=== PATIENT | male | born 1985 | race African-American/Black ===

== ENCOUNTER → 2016-12-06 | Outpatient (CLI) | payer BC, OTHER ==
[2016-12-06 15:59] LABS: ADD HIVPANEL? NO; HIV (1 AND 2) ANTIBODY NEGATIVE (NEGATIVE)
== END ==
LOC: OD 14:04
PROVIDERS: ATTEND Internal Medicine
DX: N34.1 Nonspecific urethritis (principal)
CPT/HCPCS: 36415; 86592; 86701; 87491; 87591

== ENCOUNTER 2018-02-10 21:12 | Emergency (ER) | payer BC, OTHER ==
--- NOTE | 2018-02-10 21:45 | RADIOLOGY REPORT (SQ) ---
EXAM DESCRIPTION: KNEE RIGHT 4 VIEWS COMPLETED DATE/TIME: 02/10/2018 9:33 pm REASON FOR STUDY: Pain s/p injury COMPARISON: None. NUMBER OF VIEWS: Four views. TECHNIQUE: AP, lateral, and both oblique radiographic images acquired of the right knee. LIMITATIONS: None. FINDINGS: MINERALIZATION: Normal. BONES: No acute fracture or dislocation. No worrisome bone lesions. JOINT: No effusion. SOFT TISSUES: No soft tissue swelling. No radio-opaque foreign body. OTHER: No other significant finding. IMPRESSION: NEGATIVE STUDY OF THE RIGHT KNEE. NO RADIOGRAPHIC EVIDENCE OF ACUTE INJURY. TECHNICAL DOCUMENTATION: JOB ID: [id number] [employer]- All Rights Reserved Reading location - IP/workstation name: [email or web address]
--- NOTE | 2018-02-10 23:52 | ER Document Report ---
ED General - General Chief Complaint: Knee Pain Stated Complaint: KNEE INJURY Time Seen by Provider: 02/10/18 23:42 Notes: Patient is a 32-year-old male who presents with complaint of knee pain. Pain is to the right knee. Patient says that he was jumping on trampoline and jumped into a foam pit and felt his knee pop. This happened approximately a week ago. Since then he has been having worsening pain and now it hurts to bear weight. He denies any old injuries to the knee. This is a new thing. He denies any injury to his ankle or hip. No weakness or numbness into the foot. No other complaints at this time. TRAVEL OUTSIDE OF THE [place] IN LAST 30 DAYS: No - Related Data Allergies/Adverse Reactions: ibuprofen Adverse Reaction (Verified 05/15/16 14:14) Past Medical History - Social History Smoking Status: Unknown if Ever Smoked Frequency of alcohol use: None Drug Abuse: None Family History: Reviewed & Not Pertinent Patient has suicidal ideation: No Patient has homicidal ideation: No Renal/ Medical History: Denies: Hx Peritoneal Dialysis - Immunizations Hx Diphtheria, Pertussis, Tetanus Vaccination: Yes Review of Systems - Review of Systems Notes: My Normal Review Basic REVIEW OF SYSTEMS: CONSTITUTIONAL : Denies fever, chills, or sweats. Denies recent illness. MUSCULOSKELETAL: Right knee pain SKIN: Denies rash or skin lesions. NEUROLOGICAL: Denies sensory or motor loss. ALL OTHER SYSTEMS REVIEWED AND NEGATIVE. Physical Exam - Vital signs Vitals: Temp Pulse Resp BP Pulse Ox 97.7 F 72 15 143/76 H 99 02/10/18 22:59 02/10/18 22:59 02/10/18 22:59 02/10/18 22:59 02/10/18 22:59 - Notes Notes: General Appearance: Well nourished, alert, cooperative, no acute distress, no obvious discomfort. Well-appearing. Vitals: reviewed, See vital signs table. Extremities: strength 5/5 in all extremities, good pulses in all extremities, patient is able lift the leg off the bed with the knee in full extension without any difficulty. Does have pain palpation mainly over the patella ligament. He also some pain over the medial lateral aspect of the knee. No significant swelling. Skin: warm, dry, appropriate color, no rash Neuro: speech clear, oriented x 3, normal affect, responds appropriately to questions. Distal sensation intact. Course - Re-evaluation Re-evalutation: 02/11/18 05:51 Patient is evidence of potential ligamentous injury to his knee. I will place him in the immobilizer and given crutches and have him follow-up with orthopedist. I encourage him to return to the ER if he has worsening pain, increasing swelling, fevers, feels unwell. Patient agrees with plan will be discharged home. Dictation of this chart was performed using voice recognition software; therefore, there may be some unintended grammatical errors. - Vital Signs Vital signs: Temp Pulse Resp BP Pulse Ox 97.9 F 69 14 131/72 H 97 02/11/18 01:19 02/11/18 01:19 02/11/18 01:19 02/11/18 01:19 02/11/18 01:19 Discharge - Discharge Clinical Impression: Strain of knee Condition: Good Disposition: HOME, SELF-CARE Additional Instructions: Please wear the knee immobilizer and use the crutches to not bear weight on your right knee. I suspect you have a ligamentous injury to your knee. Please follow up with the orthopedic surgeon, Dr. Sesay, for close reevaluation and further treatment of your knee. Please take Tylenol and Motrin for pain. Please take the Motrin with food. Forms: Special Work Note Referrals: YUDELKA SESAY MD [ACTIVE STAFF] - Follow up in 1 week
[2018-02-11 01:20] VITALS: BP 131/72
== END 2018-02-11 01:22 | disposition home or self-care (01) ==
LOC: ER 21:12
DX: M25.561 Pain in right knee (principal)
CPT/HCPCS: 99283; 73564; L1830

== ENCOUNTER 2018-07-13 09:24 | Emergency (ER) | payer OTHER ==
[2018-07-13 09:32] VITALS: BP 136/74
--- NOTE | 2018-07-13 11:13 | RADIOLOGY REPORT (SQ) ---
EXAM DESCRIPTION: SHOULDER LEFT 2 OR MORE VIEWS COMPLETED DATE/TIME: 07/13/2018 11:00 am REASON FOR STUDY: pain and decreased ROM COMPARISON: None. NUMBER OF VIEWS: Three views. TECHNIQUE: Internal rotation, external rotation, and Y view images acquired of the left shoulder. LIMITATIONS: None. FINDINGS: MINERALIZATION: Normal. BONES: No acute fracture or dislocation. No worrisome bone lesions. JOINTS: No dislocation. VISUALIZED LUNGS AND RIBS: No pneumothorax. No rib fracture. SOFT TISSUES: No radiopaque foreign body. OTHER: No other significant finding. IMPRESSION: NEGATIVE STUDY OF THE LEFT SHOULDER. NO RADIOGRAPHIC EVIDENCE OF ACUTE INJURY. TECHNICAL DOCUMENTATION: JOB ID: [id number] [email or web address]- All Rights Reserved Reading location - IP/workstation name: [email or web address]
--- NOTE | 2018-07-13 11:25 | ER Document Report ---
ED Extremity Problem, Upper - General Chief Complaint: left arm pain Stated Complaint: NUMBNESS LEFT ARM Time Seen by Provider: 07/13/18 10:20 Mode of Arrival: Ambulatory Information source: Patient Notes: 33-year-old male presents to ED for complaint of left arm pain since Saturday with limited range of motion. He denies any trauma or any known reason for having pain. He states she woke up with the pain and has had increasing decreased cramping with it. He states he is on Tylenol tramadol and Zanaflex and has been taking these with no relief. Patient is allergic to ibuprofen. He is alert and oriented respirations regular and unlabored speaking in full sentences. TRAVEL OUTSIDE OF THE [place] IN LAST 30 DAYS: No - HPI Patient complains to provider of: Pain, Left, Shoulder Onset: Other - Saturday Recent injury: No Quality of pain: Achy, Sharp Severity of pain: Moderate Pain Level: 4 Associated symptoms: Other - Left shoulder pain Exacerbated by: Movement, Exertion Relieved by: Nothing Similar symptoms previously: Yes Recently seen / treated by doctor: No - Related Data Allergies/Adverse Reactions: ibuprofen Adverse Reaction (Verified 05/15/16 14:14) Past Medical History - General Information source: Patient - Social History Smoking Status: Never Smoker Chew tobacco use (# tins/day): No Frequency of alcohol use: Occasional Drug Abuse: None Occupation: [employer] Family History: Reviewed & Not Pertinent Patient has suicidal ideation: No Patient has homicidal ideation: No - Past Medical History Cardiac Medical History: Reports: None Pulmonary Medical History: Reports: None EENT Medical History: Reports: None Neurological Medical History: Reports: Hx Migraine Endocrine Medical History: Reports: None Renal/ Medical History: Reports: None Malignancy Medical History: Reports None GI Medical History: Reports: Hx Ulcer Musculoskeletal Medical History: Reports Hx Musculoskeletal Deformity - Scoliosis Skin Medical History: Reports None Psychiatric Medical History: Reports: Hx Depression, Hx Post Traumatic Stress Disorder Past Surgical History: Reports: Hx Inguinal Hernia, Hx Oral Surgery - [place] teeth, Hx Umbilical Hernia - Immunizations Hx Diphtheria, Pertussis, Tetanus Vaccination: Yes Review of Systems - Review of Systems Notes: REVIEW OF SYSTEMS: CONSTITUTIONAL : Denies fever, chills, or sweats. Denies recent illness. EENT: Denies eye, ear, throat, or mouth pain or symptoms. Denies nasal or sinus congestion or discharge. Denies throat, tongue, or mouth swelling or difficulty swallowing. CARDIOVASCULAR: Denies chest pain. Denies palpitations or racing or irregular heart beat. Denies ankle edema. RESPIRATORY: Denies cough, cold, or chest congestion. Denies shortness of breath, difficulty breathing, or wheezing. GASTROINTESTINAL: Denies abdominal pain or distention. Denies nausea, vomiting , or diarrhea. Denies blood in vomitus, stools, or per rectum. Denies black, tarry stools. Denies constipation. GENITOURINARY: Denies difficulty urinating, painful urination, burning, frequency, blood in urine, or discharge. MUSCULOSKELETAL: Denies back or neck pain or stiffness. Pain and limited range of motion due to pain to the left shoulder since Saturday denies any falls injuries or any other reason he states he just woke up with the pain. He states he has been taking Tylenol tramadol and Zanaflex with no relief. SKIN: Denies rash, lesions or sores. HEMATOLOGIC : Denies easy bruising or bleeding. LYMPHATIC: Denies swollen, enlarged glands. NEUROLOGICAL: Denies confusion or altered mental status. Denies passing out or loss of consciousness. Denies dizziness or lightheadedness. Denies headache. Denies weakness or paralysis or loss of use of either side. Denies problems with gait or speech. Denies sensory loss, numbness, or tingling. Denies seizures. PSYCHIATRIC: Denies anxiety or stress. Denies depression, suicidal ideation, or homicidal ideation. ALL OTHER SYSTEMS REVIEWED AND NEGATIVE. Dictation was performed using [employer] voice recognition software PHYSICAL EXAMINATION: GENERAL: Well-appearing, well-nourished and in no acute distress. HEAD: Atraumatic, normocephalic. EYES: Pupils equal round and reactive to light, extraocular movements intact, sclera anicteric, conjunctiva are normal. ENT: Nares patent, oropharynx clear without exudates. Moist mucous membranes. NECK: Normal range of motion, supple without lymphadenopathy LUNGS: Breath sounds clear to auscultation bilaterally and equal. No wheezes rales or rhonchi. HEART: Regular rate and rhythm without murmurs ABDOMEN: Soft, nontender, nondistended abdomen. No guarding, no rebound. No masses appreciated. Musculoskeletal: Tenderness to the anterior and posterior shoulder on the left. He has decreased range of motion due to the pain. NEUROLOGICAL: Cranial nerves grossly intact. Normal speech, normal gait. Normal sensory, motor exams PSYCH: Normal mood, normal affect. SKIN: Warm, Dry, normal turgor, no rashes or lesions noted. Physical Exam - Vital signs Vitals: Temp Pulse Resp BP Pulse Ox 98.0 F 83 16 136/74 H 95 07/13/18 09:31 07/13/18 09:31 07/13/18 09:31 07/13/18 09:31 07/13/18 09:31 Course - Re-evaluation Re-evalutation: 07/13/18 22:23 X-rays with patient and patient was discharged home to continue with his Tylenol tramadol and Zanaflex and follow-up with orthopedics. - Vital Signs Vital signs: Temp Pulse Resp BP Pulse Ox 98.0 F 83 16 136/74 H 95 07/13/18 09:31 07/13/18 09:31 07/13/18 09:31 07/13/18 09:31 07/13/18 09:31 - Diagnostic Test Radiology reviewed: Image reviewed, Reports reviewed Discharge - Discharge Clinical Impression: Pain of left shoulder joint on movement Condition: Stable Disposition: HOME, SELF-CARE Additional Instructions: Shoulder Injury You have injured your shoulder. This usually results from stretching or tearing of the tendons during trauma. Time and protection are required in order to heal properly. Many injuries are quite disabling, and should be taken seriously. Initial treatment includes cold packs and a sling to rest the shoulder. The physician has assessed the seriousness of your injury, and has outlined a treatment plan. Understand that this treatment may change, depending on how you progress. If a re-examination was recommended, it is important that you follow up as instructed. Some shoulder injuries (such as partial tear of the rotator cuff) are only suspected after you've failed to improve. Call us if there's severe pain, numbness, or loss of function. Exercise Program for the Shoulder Since the shoulder moves in so many directions, the joint attachment is weak. Muscles provide most of the stability to the shoulder. You must exercise your shoulder to prevent painful instability or stiffening. PASSIVE - These may be begun within a few days of the injury. While standing, lean forward, allowing the arm to hang down towards the floor. Move the arm in small circles while slowly twisting your chest towards and away from the hanging arm. Do this for one minute. ACTIVE - These may be performed when the doctor gives permission. Begin with the arms at the sides. Raise the arms forward (shoulder's width apart) until they reach shoulder level. Then slowly swing both arms back until they are aiming straight out away from each other. Then bring them forward again, and finally, lower them to your sides. Repeat 20 to 30 times. As you improve, put weights in your hands for the exercise. Start with one pound, and work up to 10 pounds. Never use more than is comfortable. Athletes may work up to 30 pounds. Continue your tramadol Zanaflex and Tylenol and follow-up with your primary doctor. I have given you the name and number of orthopedics to follow-up for your shoulder pain and decreased range of motion. Your x-ray is negative and I have given you a written report of the x-ray to take with you to your primary doctor and orthopedics. FOLLOW-UP CARE: If you have been referred to a physician for follow-up care, call the physician s office for an appointment as you were instructed or within the next two days. If you experience worsening or a significant change in your symptoms, notify the physician immediately or return to the Emergency Department at any time for re-evaluation. Forms: Elevated Blood Pressure, Return to Work Referrals: [facility] [Primary Care Provider] - Follow up as needed [facility] [Provider Group] - Follow up as needed
== END 2018-07-13 11:40 | disposition home or self-care (01) ==
LOC: ER 09:24
DX: M25.512 Pain in left shoulder (principal); R20.0 Anesthesia of skin; M79.602 Pain in left arm
CPT/HCPCS: 99283

== ENCOUNTER 2018-09-14 19:07 | Emergency (ER) | payer OTHER ==
[2018-09-14 19:29] VITALS: BP 119/76
--- NOTE | 2018-09-14 20:12 | RADIOLOGY REPORT (SQ) ---
EXAM DESCRIPTION: XR KNEE 4 OR MORE VIEWS COMPLETED DATE/TME: 09/14/2018 00:00 CLINICAL HISTORY: 33 years, Male, Playing basketball and injured R knee. Painful. Findings: Bony alignment is anatomic. No fracture or dislocation. No significant suprapatellar joint effusion. Soft tissues are unremarkable. IMPRESSION: No fracture.
--- NOTE | 2018-09-14 20:46 | ER Document Report ---
HPI - HPI Time Seen by Provider: 09/14/18 20:03 Pain Level: 4 Notes: Patient presents with chief complaint of right knee injury that occurred approximately 1 hour prior to arrival. Patient reports he was playing basketball when he felt his knee give out from under her knees him. He denies any direct trauma to the area. Reports history of previous knee injury that he did not follow-up with. Past Medical History - General Information source: Patient - Social History Smoking Status: Never Smoker Lives with: Spouse/Significant other Family History: Reviewed & Not Pertinent Neurological Medical History: Reports: Hx Migraine Renal/ Medical History: Denies: Hx Peritoneal Dialysis GI Medical History: Reports: Hx Ulcer Musculoskeletal Medical History: Reports Hx Musculoskeletal Deformity - Scoliosis Psychiatric Medical History: Reports: Hx Depression, Hx Post Traumatic Stress Disorder Past Surgical History: Reports: Hx Inguinal Hernia, Hx Oral Surgery - [place] teeth, Hx Umbilical Hernia - Immunizations Hx Diphtheria, Pertussis, Tetanus Vaccination: Yes Vertical Provider Document - CONSTITUTIONAL Notes: PHYSICAL EXAMINATION: GENERAL: Well-appearing, well-nourished and in no acute distress. HEAD: Atraumatic, normocephalic. EYES: Pupils equal round extraocular movements intact, conjunctiva are normal. ENT: Nares patent NECK: Normal range of motion LUNGS: No respiratory distress Musculoskeletal: Normal range of motion tenderness to palpation to medial and lateral, right knee, normal motor, strength and sensation. Normal dorsalis pedis pulse. NEUROLOGICAL: Normal speech, normal gait. PSYCH: Normal mood, normal affect. SKIN: Warm, Dry, normal turgor, no rashes or lesions noted. - INFECTION CONTROL TRAVEL OUTSIDE OF THE [place] IN LAST 30 DAYS: No Course - Re-evaluation Re-evalutation: 09/14/18 21:11 X-rays negative for any acute fracture or dislocation. Patient already has a knee immobilizer from his previous injury. Patient would like to wear the knee above the lesser that he already has. Encourage patient to follow-up with [facility] if not improving. Discussed possibility of internal knee injury. Patient verb alizes understanding and agreement with plan. - Vital Signs Vital signs: Temp Pulse Resp BP Pulse Ox 98.2 F 103 H 16 119/76 95 09/14/18 19:27 09/14/18 19:27 09/14/18 19:27 09/14/18 19:27 09/14/18 19:27 Discharge - Discharge Clinical Impression: Right knee injury Qualifiers: Encounter type: initial encounter Qualified Code(s): S89.91XA - Unspecified injury of right lower leg, initial encounter Condition: Stable Disposition: HOME, SELF-CARE Instructions: Ice & Elevation ([facility]), Suspected Internal Knee Injury ([facility]), Knee Immobilizing Splint ([facility]), Sprained Knee ([facility]) Additional Instructions: The x-rays that were taken of your knee today do not show any fracture or dislocation of the bones. It is possible that you have an internal injury of the ligament or tendons. Please ice and elevate the knee as directed. Wear the knee immobilizer that you have at home. Since you are allergic to ibuprofen please take Tylenol for any pain and discomfort. Follow-up with orthopedics if the knee is not improving over the next 5-7 days, sooner if worsening. Referrals: YUDELKA SESAY MD [ACTIVE STAFF] - Follow up as needed
== END 2018-09-14 21:42 | disposition home or self-care (01) ==
LOC: ER 19:07
DX: S89.91XA Unspecified injury of right lower leg, initial encounter (principal); X50.1XXA Overexertion from prolonged static or awkward postures, initial encounter; Y93.67 Activity, basketball
CPT/HCPCS: 99283

== ENCOUNTER 2018-09-15 22:25 | Emergency (ER) | payer OTHER ==
[2018-09-16] MEDS ORDERED: HYDROCODONE/ACETAMINOPHEN 5-325 MG (6 TAB/ER DISP) PO PRN (02:17)
--- NOTE | 2018-09-16 02:19 | ER Document Report ---
HPI - HPI Patient complains to provider of: right knee injury Time Seen by Provider: 09/16/18 01:50 Pain Level: 5 Context: Patient is a 33-year-old male that comes to the emergency department for chief complaint of right knee pain. He injured it yesterday, he states he was playing basketball, planted, his knee jerked inwards and he felt sharp pain, he was seen yesterday, had a negative x-ray. He states despite icing it and elevating it he has had increased swelling since yesterday. He states he injured his knee once before in a similar. He did not require surgery. He has a knee immobilizer at home that he is using. He states that he is treated with tramadol and a muscle relaxer for chronic back pain, denies any medical history otherwise. - CONSTITUTIONAL Constitutional: DENIES: Fever, Chills - MUSCULOSKELETAL Musculoskeletal: REPORTS: Extremity pain - R knee Past Medical History - General Information source: Patient - Social History Smoking Status: Never Smoker Chew tobacco use (# tins/day): No Frequency of alcohol use: None Drug Abuse: None Lives with: Family Family History: Reviewed & Not Pertinent Patient has suicidal ideation: No Patient has homicidal ideation: No Neurological Medical History: Reports: Hx Migraine Renal/ Medical History: Denies: Hx Peritoneal Dialysis GI Medical History: Reports: Hx Ulcer Musculoskeletal Medical History: Reports Hx Musculoskeletal Deformity - Scoliosis Psychiatric Medical History: Reports: Hx Depression, Hx Post Traumatic Stress Disorder Past Surgical History: Reports: Hx Inguinal Hernia, Hx Oral Surgery - [place] teeth, Hx Umbilical Hernia - Immunizations Hx Diphtheria, Pertussis, Tetanus Vaccination: Yes Vertical Provider Document - CONSTITUTIONAL General Appearance: WD/WN, No Apparent Distress - INFECTION CONTROL TRAVEL OUTSIDE OF THE [place] IN LAST 30 DAYS: No - HEENT HEENT: Atraumatic, Normocephalic - NECK Neck: Normal Inspection - RESPIRATORY Respiratory: Breath Sounds Normal, No Respiratory Distress - CARDIOVASCULAR Cardiovascular: Regular Rate, Regular Rhythm - GI/ABDOMEN Gastrointestinal: Abdomen Soft, Abdomen Non-Tender - BACK Back: Normal Inspection - MUSCULOSKELETAL/EXTREMETIES Musculoskeletal/Extremeties: MAEW, FROM, Tender - Right knee swelling generally which is moderate, pain with range of motion of the knee but range of motion is present, no erythema, abnormal heat, no specific area of tenderness, no minimal tenderness throughout, no areas of severe tenderness. Normal thigh, leg, foot, hip exams. Unremarkable lower extremity exam otherwise. - NEURO Motor/Sensory: No Motor Deficit, No Sensory Deficit - DERM Integumentary: Warm, Dry, No Rash Course - Re-evaluation Re-evalutation: Patient does have some soft tissue swelling at the knee with pain with range of motion, there is no particular area of pain at the knee, there is no erythema, abnormal heat, there is no severe swelling or tenderness suggesting compartment syndrome, there is normal temperature of the lower extremity with normal distal pulses and sensation. Patient can ambulate on the knee although he was advised not to. Reviewed previous x-ray which was unremarkable. Patient swelling does suggest internal derangement, I highly recommended that he use immobilizer, he is not allergic to naproxen therefore he will be placed on this, he was strongly recommended to follow-up with orthopedics for additional management because this may require repair based on the amount of swelling that he had. Patient states satisfaction and agreement with plan. Stable at time of discharge. - Vital Signs Vital signs: Temp Pulse Resp BP Pulse Ox 98.5 F 91 18 132/65 H 98 09/15/18 22:33 09/15/18 22:33 09/15/18 22:33 09/15/18 22:33 09/15/18 22:33 Discharge - Discharge Clinical Impression: Right knee injury Qualifiers: Encounter type: initial encounter Qualified Code(s): S89.91XA - Unspecified injury of right lower leg, initial encounter Condition: Stable Disposition: HOME, SELF-CARE Additional Instructions: Your evaluation is concerning for derangement of the internal knee, possibly ACL tear. Continue knee immobilizer and crutches or walker, ice 3-4 times a day for 10-15 minutes, take naproxen anti-inflammatory as prescribed, only take provided medication from here tonight if needed to sleep. Please follow-up with the orthopedic referral, you will likely need an MRI and possibly surgery. Return if you worsen including severe worsening swelling, severe pain, developing redness, fever, or any other concerning or worsening symptoms. Prescriptions: Naproxen 500 mg PO BID PRN #20 tablet PRN Reason: Referrals: YUDELKA SESAY MD [ACTIVE STAFF] - Follow up in 3-5 days [facility] [Primary [facility] Provider] - Follow up as needed
[2018-09-16 02:41] VITALS: BP 125/75
== END 2018-09-16 02:40 | disposition home or self-care (01) ==
LOC: ER 22:25
DX: S89.91XA Unspecified injury of right lower leg, initial encounter (principal); X50.0XXA Overexertion from strenuous movement or load, initial encounter; Y93.67 Activity, basketball
CPT/HCPCS: 99282

== ENCOUNTER 2019-06-09 20:29 | Emergency (ER) | payer OTHER ==
[2019-06-09 20:57] VITALS: BP 142/73
[2019-06-09] MEDS ORDERED: AMOXICILLIN TR/POT CLAVULANATE 500-125 MG TAB PO ONE (21:22)
[2019-06-09] MEDS ORDERED: AMOXICILLIN TR/POT CLAVULANATE 250-125 MG TAB PO ONE (21:22)
--- NOTE | 2019-06-10 03:38 | ER Document Report ---
Entered by IDA BENITEZ SCRIBE 06/09/192 Acting as scribe for:DAQUAN PEREZ DO ED Wound - General Chief Complaint: Wound Infection Stated Complaint: POST OP ISSUES Time Seen by Provider: 06/09/19 20:47 Primary Care Provider: DORITA ALLEN MD [ACTIVE STAFF] - Follow up tomorrow (in the [place] office at 8AM) [facility] [Primary Care Provider] - Follow up as needed Mode of Arrival: Ambulatory Information source: Patient Notes: Patient is a 34-year-old male who presents to the emergency department today with complaints of discharge with foul smelling odor coming from the surgical wound on his right knee. Patient had an ACL repair on May 12. Patient states that he had a follow-up appointment about 10 days after the surgery and has not seen his doctor since. Patient states he has had no problems until about 2 days ago when he started noticing that on the stockings he was wearing there was a yellowish discharge and then he noticed the odor last night. Patient states that this area intermittently feels warm. Patient denies any fevers or being on antibiotics. Patient states he did not call his doctor about this. TRAVEL OUTSIDE OF THE [place] IN LAST 30 DAYS: No - Related Data Allergies/Adverse Reactions: ibuprofen Adverse Reaction (Verified 05/15/16 14:14) Home Medications: [place] PRN pain Past Medical History - General Information source: Patient - Social History Smoking Status: Never Smoker Cigarette use (# per day): No Chew tobacco use (# tins/day): No Frequency of alcohol use: None Drug Abuse: None Lives with: Spouse/Significant other Family History: Reviewed & Not Pertinent Patient has suicidal ideation: No Patient has homicidal ideation: No Neurological Medical History: Reports: Hx Migraine GI Medical History: Reports: Hx Ulcer Musculoskeletal Medical History: Reports Hx Musculoskeletal Deformity - Sc oliosis Psychiatric Medical History: Reports: Hx Depression, Hx Post Traumatic Stress Disorder Past Surgical History: Reports: Hx Inguinal Hernia, Hx Oral Surgery - [place] teeth, Hx Umbilical Hernia - Immunizations Hx Diphtheria, Pertussis, Tetanus Vaccination: Yes Review of Systems - Review of Systems Constitutional: denies: Fever EENT: No symptoms reported Cardiovascular: No symptoms reported Respiratory: No symptoms reported Gastrointestinal: No symptoms reported Genitourinary: No symptoms reported Male Genitourinary: No symptoms reported Musculoskeletal: See HPI, Other - discharge/odor from surgical wound on right knee Skin: No symptoms reported Hematologic/Lymphatic: No symptoms reported Neurological/Psychological: No symptoms reported -: Yes All other systems reviewed and negative Physical Exam - Vital signs Vitals: Temp Pulse Resp BP Pulse Ox 97.9 F 84 20 142/73 H 99 06/09/19 20:39 06/09/19 20:39 06/09/19 20:39 06/09/19 20:39 06/09/19 20:39 Interpretation: Normal - General General appearance: Appears well, Alert - HEENT Head: Normocephalic, Atraumatic Eyes: Normal Pupils: PERRL - Respiratory Respiratory status: No respiratory distress Chest status: Nontender Breath sounds: Normal Chest palpation: Normal - Cardiovascular Rhythm: Regular Heart sounds: Normal auscultation Murmur: No - Abdominal Inspection: Normal Distension: No distension Bowel sounds: Normal Tenderness: Nontender Organomegaly: No organomegaly - Back Back: Normal, Nontender - Extremities General upper extremity: Normal inspection, Nontender, Normal color, Normal ROM, Normal temperature General lower extremity: Nontender, Normal color, Normal ROM, Normal temperature, Normal weight bearing. No: Haider's sign Knee: No: Pain with ROM Calf: Other - R leg: anterior tibia with small open foul-smelling wound. No streaking erythema or inudration. No warmth. Knee with full ROM Ankle: No: Limited ROM - Neurological Neuro grossly intact: Yes Cognition: Normal Orientation: AAOx4 Nicole Coma Scale Eye Opening: Spontaneous [place] Coma Scale Verbal: Oriented Nicole Coma Scale Motor: Obeys Commands Nicole Coma Scale Total: 15 Speech: Normal Motor strength normal: LUE, RUE, LLE, RLE Sensory: Normal - Psychological Associated symptoms: Normal affect, Normal mood - Skin Skin Temperature: Warm Skin Moisture: Dry Skin Color: Normal Location of irregularity: Other - Nonhealing wound to anterior tibia on right. No erythema or induration. No rash. Course - Re-evaluation Re-evalutation: 06/09/19 21:[address] Owens Recommends cleaning wound, wrapping with wet-to-dry dressing. Would start on Augmentin and will see in the office tomorrow at or in [place]. States no blood work or XR needed. First dose of antibiotics given in the emergency department. Discussed with patient who is agreeable to this plan. Stable for discharge. No evidence for sepsis. No evidence for septic joint. Return if any further concerns or symptoms. - Vital Signs Vital signs: Temp Pulse Resp BP Pulse Ox 97.9 F 84 20 142/73 H 99 06/09/19 20:39 06/09/19 20:39 06/09/19 20:39 06/09/19 20:39 06/09/19 20:39 Discharge - Discharge Clinical Impression: Visit for wound check Condition: Stable Disposition: HOME, SELF-CARE Instructions: Dressing Instructions for Open Wounds ([facility]), Wound Infection ([facility]) Prescriptions: Amox Tr/Potassium Clavulanate [Augmentin 875-125 Tablet] 1 tab PO BID 10 Days #20 tablet Referrals: [facility] [Primary Care Provider] - Follow up as needed DORITA ALLEN MD [ACTIVE STAFF] - Follow up tomorrow (in the [place] office at 8AM) I personally performed the services described in the documentation, reviewed and edited the documentation which was dictated to the scribe in my presence, and it accurately records my words and actions.
== END 2019-06-09 21:59 | disposition home or self-care (01) ==
LOC: ER 20:29
DX: T81.89XA Other complications of procedures, not elsewhere classified, initial encounter (principal); Y83.4 Other reconstructive surgery as the cause of abnormal reaction of the patient, or of later complication, without mention of misadventure at the time of the procedure; Z88.6 Allergy status to analgesic agent
CPT/HCPCS: 87070; 87205; J3490; 99282

== ENCOUNTER 2019-09-22 18:34 | Emergency (ER) | payer OTHER ==
[2019-09-22] MEDS ORDERED: KETOROLAC TROMETHAMINE INJ/PF 30 MG/1 ML SDV IV ONE (20:06)
--- NOTE | 2019-09-22 20:08 | ER Document Report ---
ED Medical Screen (RME) - General Chief Complaint: Flank Pain Stated Complaint: FLANK PAIN/BLOOD IN URINE Time Seen by Provider: 09/22/19 19:59 Primary Care Provider: KARO GEORGES [Primary Care Provider] - Follow up as needed Notes: HPI: 34-year-old male presenting to the emergency department complaining of left flank pain that began several hours ago. No trauma. Pain seems to radiate from the kidney area around the flank into the left lower quadrant. Patient reports some urgency of urination and frequency of urination. No fever nausea vomiting. Pain does not change significantly with position or movement. No history of kidney stones I have greeted and performed a rapid initial assessment of this patient. A comprehensive ED assessment and evaluation of the patient, analysis of test results and completion of the medical decision making process will be conducted by additional ED providers PHYSICAL EXAMINATION: GENERAL: Well-appearing, well-nourished and in mild acute distress. HEAD: Atraumatic, normocephalic. EYES: sclera anicteric, conjunctiva are normal. ENT: Moist mucous membranes. NECK: Normal range of motion LUNGS: Normal work of breathing, lung sounds clear to auscultation HEART: 2+ radial pulses bilaterally, regular rate and rhythm ABD: limited by positioning for exam in triage. Mild tenderness to the left flank on palpation EXTREMITIES: no pitting or edema. No cyanosis. NEUROLOGICAL: No focal neurological deficits. Moves all extremities spontaneously and on command. PSYCH: Normal mood, normal affect. SKIN: Warm, Dry, normal turgor, no rashes or lesions noted. TRAVEL OUTSIDE OF THE [place] IN LAST 30 DAYS: No - Related Data Allergies/Adverse Reactions: ibuprofen Adverse Reaction (Verified 09/22/19 19:55) Past Medical History - Social History Chew tobacco use (# tins/day): No Frequency of alcohol use: Occasional Drug Abuse: None Neurological Medical History: Reports: Hx Migraine Renal/ Medical History: Denies: Hx Peritoneal Dialysis GI Medical History: Reports: Hx Ulcer Musculoskeltal Medical History: Reports Hx Musculoskeletal Deformity - Scoliosis Psychiatric Medical History: Reports: Hx Depression, Hx Post Traumatic Stress Disorder Past Surgical History: Reports: Hx Inguinal Hernia, Hx Oral Surgery - [place] teeth, Hx Umbilical Hernia - Immunizations Hx Diphtheria, Pertussis, Tetanus Vaccination: Yes Physical Exam - Vital signs Vitals: Temp Pulse Resp BP Pulse Ox 98.3 F 77 16 138/77 H 99 09/22/19 19:17 09/22/19 19:17 09/22/19 19:17 09/22/19 19:17 09/22/19 19:17 Course - Vital Signs Vital signs: Temp Pulse Resp BP Pulse Ox 98.3 F 77 16 138/77 H 99 09/22/19 19:17 09/22/19 19:17 09/22/19 19:17 09/22/19 19:17 09/22/19 19:17 Doctor's Discharge - Discharge Referrals: [facility] [Primary [facility]] - Follow up as needed
[2019-09-22 22:10] LABS: APPEARANCE,URINE CLEAR; BILIRUBIN,URINE NEGATIVE (NEGATIVE); COLOR,URINE STRAW; GLUCOSE, URINE NEGATIVE (NEGATIVE); KETONES,URINE NEGATIVE (NEGATIVE); LEUKOCYTE ESTERASE,URINE NEGATIVE (NEGATIVE); NITRITE,URINE NEGATIVE (NEGATIVE); PROTEIN,URINE NEGATIVE (NEGATIVE); URINE SPECIFIC GRAVITY 1.003; UROBILINOGEN,URINE NEGATIVE mg/dL (<2.0)
[2019-09-22 22:22] LABS: ANION GAP 11 (5-19); BLOOD UREA NITROGEN 16 mg/dL (7-20); CALCIUM 9.9 mg/dL (8.4-10.2); CARBON DIOXIDE 29 mmol/L (22-30); CHLORIDE 100 mmol/L (98-107); GLUCOSE 90 mg/dL (75-110); POTASSIUM 4.3 mmol/L (3.6-5.0)
[2019-09-22 22:24] LABS: ABSOLUTE EOSINOPHILS # (AUTO) 0.1 10^3/uL (0.0-0.6); ABSOLUTE LYMPHOCYTES (AUTO) 2.4 10^3/uL (0.5-4.7); ABSOLUTE MONOCYTES (AUTO) 0.6 10^3/uL (0.1-1.4); ABSOLUTE NEUT (AUTO) 1.9 10^3/uL (1.7-8.2); BASOPHILS % (AUTO) 0.7 % (0-2); EOSINOPHILS % (AUTO) 2.3 % (0-6); HEMATOCRIT 47.3 % (37.9-51.0); HEMOGLOBIN 16.4 g/dL (13.5-17.0); MEAN CORPUSCULAR HEMOGLOBIN 30.9 pg (27.0-33.4); MEAN CORPUSCULAR HGB CONC 34.6 g/dL (32.0-36.0); MEAN CORPUSCULAR VOLUME 90 fl (80-97); MONOCYTES % (AUTO) 11.4 % (3-13); PLATELET COUNT 223 10^3/uL (150-450); RED BLOOD COUNT 5.29 10^6/uL (4.35-5.55); RED CELL DISTRIBUTION WIDTH 13.5 % (11.5-14.0); SEGMENTED NEUTROPHILS % (AUTO) 37.6 % (42-78); TOTAL CELLS COUNTED % (AUTO) 100 %; WHITE BLOOD COUNT 4.9 10^3/uL (4.0-10.5)
--- NOTE | 2019-09-22 22:29 | RADIOLOGY REPORT (SQ) ---
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 COMPARISON: None available TECHNIQUE: Axial contiguous images were obtained from the lung bases to the proximal femurs without oral or intravenous contrast administered. Sagittal and coronal reconstructions were also obtained and reviewed. This exam was performed according to our departmental dose-optimization program, which includes automated exposure control, adjustment of the mA and/or KV according to the patient's size and/or use of iterative reconstruction technique. FINDINGS: The lung bases appear clear without evidence of a focal consolidative airspace opacity or effusions. Evaluation of the solid organs is limited by the lack of intravenous contrast. The visualized hepatic parenchyma is unremarkable. The gallbladder demonstrates no evidence of calcified gallstones The spleen, pancreas, and adrenals are normal in size and contour. The kidneys demonstrate no evidence of hydronephrosis. Bladder is minimally distended, but grossly appears unremarkable. There is a punctate calcification within the left portion of the bladder. No renal or ureteral calculi are seen. The stomach is not well distended. The small bowel loops appear unremarkable. No pericolonic inflammatory stranding is seen. There are multiple diverticula seen within the sigmoid and descending colon, without evidence to suggest diverticulitis. The appendix appears unremarkable. There is no evidence of pneumoperitoneum or free fluid. The aorta and IVC appear normal in size. No significantly enlarged lymph nodes are seen in the abdomen or pelvis. Review of the bone show no evidence of any suspicious lytic or blastic lesions. IMPRESSION: No acute process is seen within the abdomen or pelvis. There is a punctate calcification within the left portion of the urinary bladder which could represent a recently passed calculus. There is no evidence of hydronephrosis.
[2019-09-23] MEDS ORDERED: HYDROCODONE/ACETAMINOPHEN 5-325 MG (6 TAB/ER DISP) PO PRN (01:06)
--- NOTE | 2019-09-23 01:19 | ER Document Report ---
ED GI/ - General Chief Complaint: Flank Pain Stated Complaint: FLANK PAIN/BLOOD IN URINE Time Seen by Provider: 09/22/19 19:59 Primary Care Provider: KARO GEORGES [Primary Care Provider] - Follow up as needed Notes: Patient is a 34-year-old male that comes to the emergency department for chief complaint of left flank pain. This was sudden onset, sharp and throbbing, started several hours prior to arrival. Patient denies vomiting, fever, painful urination, but he does report some frequency of urination and urgency. He denies history of kidney stones, he denies injury, he denies abdominal pain. He denies any other complaints. Past medical history of inguinal hernia repair. TRAVEL OUTSIDE OF THE [place] IN LAST 30 DAYS: No - Related Data Allergies/Adverse Reactions: ibuprofen Adverse Reaction (Verified 09/22/19 19:55) Past Medical History - General Information source: Patient - Social History Smoking Status: Never Smoker Chew tobacco use (# tins/day): No Frequency of alcohol use: Occasional Drug Abuse: None Lives with: Family Family History: Reviewed & Not Pertinent Patient has suicidal ideation: No Patient has homicidal ideation: No Neurological Medical History: Reports: Hx Migraine Renal/ Medical History: Denies: Hx Peritoneal Dialysis GI Medical History: Reports: Hx Ulcer Musculoskeletal Medical History: Reports Hx Musculoskeletal Deformity - Scoliosis Psychiatric Medical History: Reports: Hx Depression, Hx Post Traumatic Stress Disorder Past Surgical History: Reports: Hx Inguinal Hernia, Hx Oral Surgery - [place] teeth, Hx Umbilical Hernia - Immunizations Hx Diphtheria, Pertussis, Tetanus Vaccination: Yes Review of Systems - Review of Systems Constitutional: No symptoms reported EENT: No symptoms reported Cardiovascular: No symptoms reported Respiratory: No symptoms reported Gastrointestinal: See HPI Genitourinary: See HPI Male Genitourinary: No symptoms reported Musculoskeletal: No symptoms reported Skin: No symptoms reported Hematologic/Lymphatic: No symptoms reported Neurological/Psychological: No symptoms reported Physical Exam - Vital signs Vitals: Temp Pulse Resp BP Pulse Ox 98.3 F 77 16 138/77 H 99 09/22/19 19:17 09/22/19 19:17 09/22/19 19:17 09/22/19 19:17 09/22/19 19:17 - Notes Notes: GENERAL: Patient sitting up on the bed, appears comfortable, no signs of distress HEAD: Normocephalic, atraumatic. EYES: Pupils equal, round, and reactive to light. Extraocular movements intact. ENT: Oral mucosa moist, tongue midline. Oropharynx unremarkable. Airway patent. LUNGS: Clear to auscultation bilaterally, no wheezes, rales, or rhonchi. No respiratory distress. HEART: Regular rate and rhythm. No murmur ABDOMEN: Soft, non-tender. Non-distended. EXTREMITIES: Moves all 4 extremities spontaneously. No edema, normal radial and dorsalis pedis pulses bilaterally. No cyanosis. BACK: No CVA tenderness noted. No cervical, thoracic, lumbar midline tenderness. No saddle anesthesia, normal distal neurovascular exam. Moves all extremities in full range of motion. NEUROLOGICAL: Alert and oriented x3. Normal speech. Cranial nerves II through XII grossly intact. PSYCH: Normal affect, normal mood. SKIN: Warm, dry, normal turgor. No rashes or lesions noted. Course - Re-evaluation Re-evalutation: Patient looks great. He states he still has a dull minimal pain but otherwise no complaints. Soft benign abdomen, no CVA tenderness, unremarkable vital signs. CBC, chemistry unremarkable, urinalysis nonspecific with a little bit of blood. CT showing stone in the bladder which is small, no other concerning findings. I suspect patient did pass the stone into the bladder and he states he is doing much better now. Discussed recommendations, follow-up, return precautions. Patient states he is not allergic to ibuprofen but it upsets his stomach at times. He does request Toradol and I discussed options however. He was provided with this. Stable at time of discharge. - Vital Signs Vital signs: Temp Pulse Resp BP Pulse Ox 97.9 F 68 20 127/60 H 100 09/23/19 01:38 09/23/19 01:38 09/23/19 01:38 09/23/19 01:38 09/23/19 01:38 - Laboratory Result Diagrams: 09/22/19 21:54 09/22/19 21:54 Laboratory results interpreted by me: 09/22/19 09/22/19 20:50 21:54 Lymph % (Auto) 48.0 H Seg Neutrophils % 37.6 L Urine Blood LARGE H Discharge - Discharge Clinical Impression: Left flank pain Condition: Stable Disposition: HOME, SELF-CARE Additional Instructions: Your imaging shows that you passed a kidney stone into your bladder, this appears to be the source of the pain you were having. No additional concerning findings are seen. You will likely have some pain from spasm for the next couple of days, this should resolve with time. Drink plenty of fluids, take the Toradol as prescribed with food and consider [id number] famotidine while taking. Follow-up with primary care. Reduce oxalate consumption to reduce likelihood of kidney stones. Return for any concerning symptoms including fever, vomiting, severe worsening pain, or any other concerning symptoms. Prescriptions: Ketorolac Tromethamine [Toradol 10 mg Tablet] 10 mg PO Q8HP PRN #24 tablet PRN Reason: Referrals: [facility] [Primary [facility]] - Follow up as needed
[2019-09-23 02:27] VITALS: BP 127/60
== END 2019-09-23 02:00 | disposition home or self-care (01) ==
LOC: ER 18:34
DX: N21.0 Calculus in bladder (principal); R10.9 Unspecified abdominal pain; R35.0 Frequency of micturition; R39.15 Urgency of urination; R31.9 Hematuria, unspecified
CPT/HCPCS: 36415; 74176; 80048; 81001; 85025; 99284

== ENCOUNTER 2020-04-28 16:51 | Emergency (ER) | payer OTHER ==
[2020-04-28 16:57] VITALS: BP 143/83
[2020-04-28] MEDS ORDERED: KETOROLAC TROMETHAMINE 60 MG/2 ML SDV IM ONE (17:29)
[2020-04-28] MEDS ORDERED: DEXAMETHASONE SOD PHOS INJ 10 MG/1 ML VIAL IM ONE (17:29)
--- NOTE | 2020-04-28 17:34 | ER Document Report ---
ED Neck/Back Problem - General Chief Complaint: Back Pain Stated Complaint: BACK PAIN Time Seen by Provider: 04/28/20 17:21 [facility] - Follow up in 3-5 days Mode of Arrival: Ambulatory Information source: Patient Notes: 34-year-old male presented to ED for complaint of mid back pain. He states he has had this pain since about 2011 when he was injured in the . He states it comes and goes. He states sometimes is worse than others. He states he has not had any loss control of bowel bladder has not had any loss of sensation to the lower extremities has not any saddle anesthesia. He states he has had this pain multiple times. He states sometimes Robaxin helps. [facility] I have suggested that he [facility] if he has continued to have pain in this area. He states he does work at a [employer] and the sitting in the chair sometimes makes it much worse. He does have medical history of knee surgery back pain hernias and ulcers. He states he cannot take ibuprofen by mouth due to the ulcers. He states she is a former smoker he drinks monthly and uses marijuana. REVIEW OF SYSTEMS: CONSTITUTIONAL : Denies fever, chills, or sweats. Denies recent illness. EENT: Denies eye, ear, throat, or mouth pain or symptoms. Denies nasal or sinus congestion. CARDIOVASCULAR: Denies chest pain. MUSCULOSKELETAL: Complains of back pain in his mid back. He states she has had pain in this area since 2011 off and on. He states it is pretty bad at this time. He states it is the same pain he always has. He has no neurological deficits. He states he is treated by the [facility]. He states he occasionally gets muscle relaxers and they help SKIN: Denies rash or skin lesions. HEMATOLOGIC : Denies easy bruising or bleeding. LYMPHATIC: Denies swollen, enlarged glands. NEUROLOGICAL: Denies altered mental status or loss of consciousness. Denies headache. Denies weakness or paralysis or loss of use of either side. Denies problems with gait or speech. Denies sensory or motor loss. PSYCHIATRIC: Denies anxiety or stress or depression. ALL OTHER SYSTEMS REVIEWED AND NEGATIVE. PHYSICAL EXAMINATION: GENERAL: Well-appearing, well-nourished and in no acute distress. HEAD: Atraumatic, normocephalic. EYES: Pupils equal round extraocular movements intact, conjunctiva are normal. ENT: Nares patent NECK: Normal range of motion LUNGS: No respiratory distress Musculoskeletal: Complains of tenderness to the thoracic spine. NEUROLOGICAL: Normal speech, normal gait. PSYCH: Normal mood, normal affect. SKIN: Warm, Dry, normal turgor, no rashes or lesions noted. TRAVEL OUTSIDE OF THE [place] IN LAST 30 DAYS: No - HPI Patient complains to provider of: Pain, Upper back Onset: Other - Chronic Onset: Chronic Timing: Waxing and waning, Still present Quality of pain: Sharp Severity: Moderate Pain Level: 3 Associated symptoms: Like prior neck/back pain, Upper back pain. denies: Motor loss, Numbness/tingling, Radiation to arm, Radiation to chest, Radiation to leg, Sensory loss, Unable to urinate, Lower back pain Exacerbated by: Movement of trunk, Sitting position Relieved by: Other - Muscle relaxers Similar symptoms previously: Yes Recently seen / treated by doctor: No - Related Data Allergies/Adverse Reactions: ibuprofen Adverse Reaction (Verified 09/22/19 19:55) Past Medical History - General Information source: Patient - Social History Smoking Status: Former Smoker Frequency of alcohol use: Occasional Drug Abuse: Marijuana Family History: Reviewed & Not Pertinent Patient has suicidal ideation: No Patient has homicidal ideation: No - Past Medical History Cardiac Medical History: Reports: None Pulmonary Medical History: Reports: None EENT Medical History: Reports: None Neurological Medical History: Reports: Hx Migraine Endocrine Medical History: Reports: None Renal/ Medical History: Reports: None Malignancy Medical History: Reports None GI Medical History: Reports: Hx Ulcer, Other - Hernia Musculoskeletal Medical History: Reports Hx Musculoskeletal Deformity - Scoliosis, Reports Hx Musculoskeletal Trauma Skin Medical History: Reports None Psychiatric Medical History: Reports: Hx Depression, Hx Post Traumatic Stress Disorder Traumatic Medical History: Reports: None Infectious Medical History: Reports: None Past Surgical History: Reports: Hx Inguinal Hernia, Hx Oral Surgery - Lillian teeth, Hx Orthopedic Surgery - Knee surgery, Hx Umbilical Hernia - Immunizations Hx Diphtheria, Pertussis, Tetanus Vaccination: Yes Physical Exam - Vital signs Vitals: Temp Pulse Resp BP Pulse Ox 99.0 F 82 16 143/83 H 100 04/28/20 16:56 04/28/20 16:56 04/28/20 16:56 04/28/20 16:56 04/28/20 16:56 Course - Re-evaluation Re-evalutation: 04/28/20 22:48 Patient states he has had steroids for this pain in the past. Is also had muscle relaxers. He was given a injection of Toradol and Decadron in the emergency room and discharged home with prescription for muscle relaxers. Patient was agreeable with this plan - Vital Signs Vital signs: Temp Pulse Resp BP Pulse Ox 99.0 F 82 16 143/83 H 100 04/28/20 16:56 04/28/20 16:56 04/28/20 16:56 04/28/20 16:56 04/28/20 16:56 Discharge - Discharge Clinical Impression: Chronic back pain Qualifiers: Back pain location: thoracic back pain Back pain laterality: midline Qualified Code(s): M54.6 - Pain in thoracic spine Condition: Stable Disposition: HOME, SELF-CARE Additional Instructions: Chronic Pain Control Stress, inactivity, and depression make pain more severe regardless of the cause of the pain. Stress and poor physical condition can cause pain such as headaches and backache. Relaxation: Rest in a quiet place with your eyes closed for 20 minutes twice daily. Concentrate on a pleasant image, or simply "feel" your breathing. Clear your mind. Stress management: Deal with your "stressors." Either take action, or eliminate the stressor from your life. Don't let things hang over you. Accept those things you can't change. Nutrition: Eat small, balanced meals -- don't skip, don't overeat. Meals should be high-carbohydrate, low-sugar, low-fat. Exercise: Exercise helps painful conditions and eases stress. Get 30 minutes of moderate exercise, five days a week. Do an activity that does not flare your pain. Precautions: Pain which continues to disrupt daily activities, or which changes in nature, requires a medical evaluation. Pain Clinic referral is available. We do not manage chronic pain in the Emergency Department. We will try to appropriately help you through an acute flare of your chronic painful condition, but for on-going chronic pain that does not improve, you will need to see your private doctor or supervisor painting [employer]. We do not provide repeated medication management of chronic painful conditions. If you wish, we can provide the name of local pain management physicians. STEROID MEDICATION: You have been given an injection of medicine of the cortisone/steroid class. This medication is used to control inflammation or allergy. It is often continued as a pill for a short period of time, until the acute process subsides. There are usually no side effects from short-term use of cortisone-like medications. Some persons feel an increased sense of well-being and are not sleepy at bedtime. Long-term use of cortisone medications is best avoided, unless required for a severe condition. If your condition does not remit, or relapses after the course of corticosteroid medication, you should consult your physician. Toradol Injection You have been given an injection of ketorolac tromethamine (Toradol). This is an excellent, safe drug for pain control. It also has potent antiinflammatory action. You should have significant pain relief within about one hour. Toradol is not addicting and is non-sedating. It does not interfere with driving or work. Call or return if you develop itching, hives, shortness of breath, or rash. MUSCLE RELAXERS: Muscle relaxing medications are usually prescribed for acute muscle spasm or injury to the neck and back. They are often combined with antiinflammatory pain medication for increased relief. You may stop the muscle relaxer when the pain and stiffness have improved. Start the medication again if spasms recur. Muscle relaxers may cause drowsiness, especially with the first dose. Do not operate machinery or drive while under the effects of the medication. Most muscle relaxers last up to 24 hours. Do not combine the medication with alcohol. ICE PACKS: Apply ice packs frequently against the painful area. Many different schedules are recommended, such as "20 minutes on, 20 minutes off" or "one hour ice, two hours rest." If you need to work, you may need to go longer between ice treatments. You should plan to have the area ice packed AT LEAST one fourth of the time. The ice should be applied over the wrap, tape, or splint, or over a layer of cloth -- not directly against the skin. Some ice bags have a built-in cloth and can be put directly on the skin. WARM PACKS: After approximately two days, apply gentle heat (such as a heating pad or hot water bottle) for about 20 to 30 minutes about every two hours -- at least four times daily. Warmth and elevation will help you make a more rapid recovery, and will ease the pain considerably. Do not use HOT heat, and never apply heat for longer than 30 minutes. The continuous heat can invisibly damage skin and muscles -- even when no burn is seen on the surface. Damaged muscles can make you MORE sore. FOLLOW-UP CARE: If you have been referred to a physician for follow-up care, call the physicians office for an appointment as you were instructed or within the next two days. If you experience worsening or a significant change in your symptoms, notify the physician immediately or return to the Emergency Department at any time for re-evaluation. Prescriptions: Methocarbamol [Robaxin 500 mg Tablet] 500 mg PO BIDP PRN #14 tablet PRN Reason: Forms: Elevated Blood Pressure, Smoking Cessation Education Referrals: [facility] [Primary [facility]] - Follow up in 3-5 days
== END 2020-04-28 17:50 | disposition home or self-care (01) ==
LOC: ER 16:51
DX: M54.6 Pain in thoracic spine (principal); M54.9 Dorsalgia, unspecified; Z87.891 Personal history of nicotine dependence; F12.10 Cannabis abuse, uncomplicated; Z88.8 Allergy status to other drugs, medicaments and biological substances
CPT/HCPCS: 99284; 96372; J1885; J1100